=== PATIENT | female | born 1945 ===

== ENCOUNTER 2023-09-11 00:40 | Emergency (ER) | payer MEDICARE, BC ==
[2023-09-11] MEDS: Orphenadrine 60 MG/2 ML Inj IM ONE (01:45)
[2023-09-11 01:46] LABS: APPEARANCE,URINE CLEAR (CLEAR); BILIRUBIN,URINE NEGATIVE (NEGATIVE); COLOR,URINE YELLOW (YELLOW); GLUCOSE,URINE NEGATIVE (NEGATIVE); KETONES,URINE NEGATIVE (NEGATIVE); LEUKOCYTE ESTERASE,URINE TRACE (NEGATIVE); NITRITE,URINE NEGATIVE (NEGATIVE); OCCULT BLOOD,URINE TRACE-INTACT (NEGATIVE); PROTEIN,URINE NEGATIVE (NEGATIVE); UROBILINOGEN,URINE 0.2 EU/dL (0.2-1.0)
[2023-09-11 01:52] LABS: BACTERIA,URINE OCCASIONAL /HPF (NOT SEEN); EPITHELIAL CELLS,URINE FEW /HPF (NOT SEEN); RBC,URINE 0-5 /HPF (0-5)
[2023-09-11] MEDS ORDERED: Naloxone 2 MG/2 ML Syringe IVPUSH PRN (02:05)
[2023-09-11] MEDS: Morphine 2 MG/ML SYRINGE IVPUSH ONE (02:13)
[2023-09-11] MEDS: Take Home: traMADol 50 MG, 4 Tab Pack PO ONE (03:22)
== END 2023-09-11 03:21 | disposition home or self-care (01) ==
LOC: CC.ED 00:40
DX: M51.24 Other intervertebral disc displacement, thoracic region (principal); I10 Essential (primary) hypertension; E78.00 Pure hypercholesterolemia, unspecified; Z79.899 Other long term (current) drug therapy; Z79.82 Long term (current) use of aspirin; Z79.01 Long term (current) use of anticoagulants
CPT/HCPCS: 74176; 81001; 96372; 96374; 99284; A9270; J2270; J2360